=== PATIENT | male | born 1980 | race Caucasian/White ===

== ENCOUNTER 2020-10-04 11:53 | Outpatient (REF) | payer OTHER, SELFPAY ==
[2020-10-04 12:29] LABS: MANUAL DIFF FLAG NO
[2020-10-04 12:31] LABS: Basophils Absolute Auto 0.1 X10*3/uL (0.0-0.2); Basophils Percent Auto 0.9 % (0-2); Eosinophils Absolute Auto 0.6 X10*3/uL (0.0-0.4); Eosinophils Percent Auto 6.8 % (0-4); Hemoglobin 14.8 g/dl (14.0-18.0); Imm Gran Abs Auto 0.03 X10*3/uL (0.00-0.03); Imm Gran Pct Auto 0.3 % (0.0-0.4); Immature Retic Fraction 4.5 % (2.3-13.4); Lymphocytes Percent Auto 33.1 % (20-40); Mean Corpuscular HGB Conc 34.4 g/dl (31.0-36.0); Mean Corpuscular Hemoglobin 30.2 pg (27.0-33.0); Mean Corpuscular Volume 87.8 fL (80-98); Mean Platelet Volume 11.5 fL (9.4-12.4); Monocytes Absolute Auto 0.9 X10*3/uL (0.1-1.2); Monocytes Percent Auto 9.5 % (2-11); Neutrophils Absolute Auto 4.4 X10*3/uL (2.0-8.3); Neutrophils Percent Auto 49.4 % (45-73); Platelet Count 230 X10*3/uL (160-400); Red Cell Distribution Width 11.9 % (11.0-16.0); Retic HGB Equivalent 34.2 pg (30.0-35.0); Reticulocyte Percent 1.8 % (0.5-1.8); Reticulocytes Absolute 0.089 X10*6/uL (0.026-0.095)
[2020-10-04 12:55] LABS: Alanine Aminotransferase 45 U/L (0-40); Albumin Level 4.6 g/dL (3.5-5.0); Alkaline Phosphatase 65 U/L (39-117); Anion Gap 13 (12-20); Aspartate Amino Transferase 22 U/L (5-37); Bilirubin Total 0.5 mg/dL (0.0-1.0); Blood Urea Nitrogen 16 mg/dL (9-16); Calcium 9.6 mg/dL (8.4-10.2); Carbon Dioxide 27 mmol/L (22-29); Chloride 102 mmol/L (96-108); Estimated Glomerular Filt Rate > 60; Glucose Random 132 mg/dL (60-115); Iron 146 mcg/dL (45-160); Percent Iron Saturation 45 % (15-50); Potassium 4.7 mmol/l (3.3-5.1); Sodium 137 mmol/L (135-145); Total Iron Binding Capacity 326 mcg/dL (228-428); Total Protein 7.3 g/dL (6.5-8.0); Unsaturated Iron Binding 180 ug/dL
[2020-10-04 13:21] LABS: Ferritin 320 ng/mL (20-250)
[2020-10-04 13:32] LABS: Folate 17.1 ng/mL (> or = 4.0); Vitamin B12 458 pg/mL (200-900)
== END 2020-10-04 11:54 | disposition home or self-care (01) ==
LOC: HO.LAB 11:53
PROVIDERS: PCP Internal Medicine; Visit Provider Internal Medicine
DX: E11.65 Type 2 diabetes mellitus with hyperglycemia (principal); D64.9 Anemia, unspecified
CPT/HCPCS: 36415; 80053; 82607; 82728; 82746; 83540; 85025; 85045

== ENCOUNTER 2021-01-17 08:03 | Outpatient (REF) | payer OTHER, SELFPAY ==
--- NOTE | ~2021-01-17 | US_ITS ---
EXAMINATION: US ABDOMEN LIMITED CLINICAL INFORMATION: Abnormal results of liver function studies. COMPARISON: None TECHNIQUE: Real-time imaging of the right upper quadrant abdominal viscera. FINDINGS: PANCREAS: Visualized portions unremarkable. LIVER: Diffuse increased echotexture without focal abnormality. GALLBLADDER: Unremarkable. COMMON BILE DUCT: Normal in caliber measuring 0.6 cm in diameter. RIGHT KIDNEY: 11.5 cm. Unremarkable. FREE FLUID: None. US/US abdomen limited IMPRESSION: Hepatic steatosis without other significant abnormality.
== END 2021-01-17 08:04 | disposition home or self-care (01) ==
LOC: HO.US 08:03
PROVIDERS: PCP Internal Medicine; Visit Provider Internal Medicine
DX: R94.5 Abnormal results of liver function studies (principal)
CPT/HCPCS: 76705

== ENCOUNTER 2021-04-06 09:29 | Outpatient (REF) | payer OTHER, SELFPAY ==
--- NOTE | ~2021-04-06 | XR_ITS ---
EXAMINATION: XR CHEST 2 VIEWS CLINICAL INFORMATION: Chest pain. COMPARISON: None. TECHNIQUE: Frontal and lateral views of the chest were obtained. FINDINGS: The heart, great vessels, pulmonary vasculature and mediastinum are normal. The lungs show no focal infiltrate, effusion or pneumothorax. There is no acute osseous abnormality. XR/XR chest 2V IMPRESSION: No active cardiopulmonary disease.
--- NOTE | 2021-04-06 10:09 | ECG_ITS ---
Test Reason : CHEST PAIN Blood Pressure : / mmHG Vent. Rate : 072 BPM Atrial Rate : 072 BPM P-R Int : 144 ms QRS Dur : 078 ms QT Int : 372 ms P-R-T Axes : 051 034 025 degrees QTc Int : 407 ms Normal sinus rhythm Normal ECG No previous ECGs available Referred By: Sully Cruz Electronically Signed By:RACHEL ARCE
[2021-04-06 10:38] LABS: MANUAL DIFF FLAG NO
[2021-04-06 10:47] LABS: Basophils Absolute Auto 0.1 X10*3/uL (0.0-0.2); Basophils Percent Auto 0.6 % (0-2); Eosinophils Absolute Auto 0.5 X10*3/uL (0.0-0.4); Eosinophils Percent Auto 6.3 % (0-4); Hematocrit 43.4 % (42-52); Hemoglobin 14.7 g/dl (14.0-18.0); Imm Gran Abs Auto 0.01 X10*3/uL (0.00-0.03); Imm Gran Pct Auto 0.1 % (0.0-0.4); Lymphocytes Absolute Auto 2.9 X10*3/uL (1.2-4.9); Lymphocytes Percent Auto 33.9 % (20-40); Mean Corpuscular HGB Conc 33.9 g/dl (31.0-36.0); Mean Corpuscular Hemoglobin 30.1 pg (27.0-33.0); Mean Corpuscular Volume 88.8 fL (80-98); Mean Platelet Volume 11.2 fL (9.4-12.4); Monocytes Absolute Auto 0.6 X10*3/uL (0.1-1.2); Monocytes Percent Auto 7.4 % (2-11); Neutrophils Absolute Auto 4.4 X10*3/uL (2.0-8.3); Neutrophils Percent Auto 51.7 % (45-73); Platelet Count 220 X10*3/uL (160-400); Red Blood Count 4.89 X10*6/uL (4.60-5.80); Red Cell Distribution Width 12.3 % (11.0-16.0); White Blood Count 8.5 X10*3/uL (4.8-10.8)
[2021-04-06 11:15] LABS: Alanine Aminotransferase 37 U/L (0-40); Albumin Level 4.8 g/dL (3.5-5.0); Alkaline Phosphatase 71 U/L (39-117); Anion Gap 13 (12-20); Aspartate Amino Transferase 20 U/L (5-37); Bilirubin Total 0.5 mg/dL (0.0-1.0); Blood Urea Nitrogen 26 mg/dL (9-16); Calcium 9.8 mg/dL (8.4-10.2); Carbon Dioxide 24 mmol/L (22-29); Chloride 107 mmol/L (96-108); Cholesterol 138 mg/dL; Estimated Glomerular Filt Rate > 60; Glucose Random 122 mg/dL (60-115); HDL Cholesterol 40 mg/dL; LDL Cholesterol Calculated 81 mg/dl; Potassium 4.7 mmol/L (3.3-5.1); Sodium 139 mmol/L (135-145); Total Protein 7.5 g/dL (6.5-8.0); Triglycerides 87 mg/dL; Uric Acid 6.1 mg/dL (3.4-7.0)
[2021-04-06 11:21] LABS: Creatinine Urine 238.52 mg/dL; Microalbum/Creatinine Ratio Ur 4.6 ug/mg cr
[2021-04-06 11:38] LABS: Free T4 (Free Thyroxine) 0.95 ng/dL (0.71-1.85); Thyroid Stimulating Hormone 1.66 uIU/mL (0.32-4.0)
[2021-04-06 11:46] LABS: Folate 17.7 ng/mL (> or = 4.0); Vitamin B12 371 pg/mL (200-900)
[2021-04-06 11:50] LABS: HBS Num1 0.11 mIU/mL (0-7.99); HBc Num1 0.07 S/CO (0.00-0.79); Hepatitis B Core Antibody Nonreactive (Nonreactive); ~HepC Num1 0.08 S/CO (0.00-0.79); ~Hepatitis B Surface Antibody NONREACTIVE (Nonreactive); ~Hepatitis C Antibody Nonreactive (Nonreactive)
[2021-04-06 12:10] LABS: HBsAGNum1 0.21 S/CO (0.00-0.99); Hepatitis B Surface Antigen Negative (Negative)
== END 2021-04-06 09:30 | disposition home or self-care (01) ==
LOC: HO.XRAY 09:29
PROVIDERS: PCP Internal Medicine; Visit Provider Internal Medicine
DX: R07.9 Chest pain, unspecified (principal); E11.65 Type 2 diabetes mellitus with hyperglycemia; E78.00 Pure hypercholesterolemia, unspecified; R94.5 Abnormal results of liver function studies; K21.9 Gastro-esophageal reflux disease without esophagitis
CPT/HCPCS: 36415; 71046; 80053; 80061; 82043; 82607; 82746; 84439; 84443; 84550; 85025; 86704; 86706; 86803; 87340; 93005